=== PATIENT | female | born 1960 | race Caucasian/White ===

== ENCOUNTER 2021-02-09 06:21 | Day surgery (SDC) | payer OTHER ==
[2021-02-09] MEDS ORDERED: Sodium Chloride 0.9% 1,000 ML IV SCH ×2 (06:30)
[2021-02-09] MEDS ORDERED: Midazolam 1 MG/ML 2 ML SDV ONE (07:23)
[2021-02-09] MEDS ORDERED: fentaNYL 100 MCG/2 ML SDV ONE (07:23)
[2021-02-09] MEDS ORDERED: Propofol 200 MG/20 ML SDV ONE (07:23)
[2021-02-09 09:05] VITALS: BP 111/80; PULSE 74
--- NOTE | 2021-02-09 17:25 | OR ---
DATE OF PROCEDURE: 02/09/2021 SURGEON: Braxton Paul MD PROCEDURE: Colonoscopy. FINDINGS: Descending colon polyp, approximately 1 cm, completely removed using hot snare wire device. COMPLICATIONS: None. 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 ANESTHESIA: MAC. PREOPERATIVE DIAGNOSIS: Screening colonoscopy. POSTOPERATIVE DIAGNOSIS: Screening colonoscopy. RISKS: Risks, benefits, alternatives, and limitations including, but not limited to infection, bleeding, perforation, false positives, and false negatives were explained to the patient, and she wished to proceed. PROCEDURE IN DETAIL: The patient was placed in left lateral decubitus position. Digital rectal exam was performed. The scope was introduced and advanced atraumatically to the ileocecal valve. A photo was taken. The scope was brought back through the ascending, transverse, descending colon, and retroflexed. No evidence of old or new blood. No masses. No colitis. No abnormalities on retroflex. The polyp was removed as described above. No abnormal bleeding was noted after removal. Greater than 8 minutes was spent removing the scope. The prep was acceptable, approximately 95% luminal surface could be seen. The patient tolerated the procedure well. Braxton Paul MD /[id number]
== END 2021-02-09 09:10 | disposition home or self-care (01) ==
LOC: JP.SDS 06:21
PROVIDERS: ATTEND Surgery
DX: Z12.11 Encounter for screening for malignant neoplasm of colon (principal); D12.4 Benign neoplasm of descending colon; E78.5 Hyperlipidemia, unspecified; E11.9 Type 2 diabetes mellitus without complications; E03.9 Hypothyroidism, unspecified; E66.9 Obesity, unspecified; Z68.31 Body mass index [BMI] 31.0-31.9, adult
CPT/HCPCS: 45380; J2250; J2704; J3010; J7030; 88305